=== PATIENT | male | born 1980 | race Caucasian/White ===

== ENCOUNTER → 2022-07-07 | Outpatient (CLI) | payer OTHER | LOC: M PLAIMG 14:14 | PROVIDERS: ATTEND Physician Assistant | DX: M48.07 Spinal stenosis, lumbosacral region (principal) ==

== ENCOUNTER → 2023-03-12 | Outpatient (CLI) | payer OTHER | LOC: M PLAIMG 15:07 | PROVIDERS: ATTEND Physician Assistant | DX: M25.512 Pain in left shoulder (principal) ==